=== PATIENT | male | born 1960 | race Caucasian/White ===

== ENCOUNTER 2023-05-01 07:44 | Day surgery (SDC) | payer BC, SELFPAY ==
[2023-05-01] MEDS: Lactated Ringers 1,000 ML 15 ML IV (08:16)
[2023-05-01 08:17] VITALS: BP 139/98; PULSE 88; RESP 16; TEMP 36.9; O2SAT 100; BMI 22.1
--- NOTE | 2023-05-01 08:27 | PCM.HP.STD ---
[facility] - General General Date of Admission: 05/01/23 Date of Service: 05/01/23 Chief Complaint: Screening colonoscopy HPI Narrative DANYA BRADLEY, is a 62 M who presents today for screening. He has past medical history of BPH, gout, hypercholesterolemia who presents for screening colonoscopy. He had a colonoscopy approximately 10 years ago. That was normal. He does not have any problems with his bowels. He denies any chest pain or shortness of breath. Overall is in very good health. [facility] Medical History (Updated 04/26/23 @ 10:31 by Miya Quezada) Alcohol use Benign prostatic hyperplasia with lower urinary tract symptoms Cancer Gout High cholesterol History of edema History of steroid therapy Hypercholesteremia Kidney stone Non-smoker Wears glasses Home Medications finasteride 5 mg tablet 5 mg PO DAILY 02/16/23 [History Last Taken Unknown] rosuvastatin 10 mg tablet 10 mg PO DAILY 02/16/23 [History Last Taken Unknown] tamsulosin 0.4 mg capsule 0.4 mg PO DAILY 02/16/23 [History Last Taken Unknown] allopurinol 100 mg tablet 100 mg PO DAILY 04/26/23 [History Last Taken Unknown] Allergy/AdvReac Type Severity Reaction Status Date / Time Penicillins Allergy PT UNSURE Verified 05/01/23 08:15 OF REACTION Family History (Updated 02/16/23 @ 10:46 by La Shea) Brother Colon polyps Father Lung cancer Mother Breast cancer Surgical History (Updated 02/16/23 @ 10:44 by La Shea) Hx of appendectomy Hx of colonoscopy Hx of hernia repair Hx of lithotripsy Social History (Updated 02/16/23 @ 10:48 by La Shea) household members: spouse current occupational status: retired Smoking Status: Never smoker alcohol intake: current substance use type: does not use caffeine: Yes Type: coffee ROS Review of Systems ROS Unobtainable: other Constitutional Constitutional: Denies fatigue, fever(s), poor appetite, weight gain or weight loss ENT HEENT: Denies mouth lesions Cardiovascular Cardiovascular: Denies abdominal bloating, abdominal edema or abdominal pain Respiratory/Chest Respiratory/Chest: Denies change in mental status, change in phlegm color, chest congestion or chest tightness Gastrointestinal Gastrointestinal: Denies belching, bloating, change in bowel habits, change in stool character, chewing difficulty, coffee ground emesis, constipation, cramping, diarrhea, dyspepsia, dysphagia, early satiety, excessive flatus, fecal incontinence, heartburn, hematemesis, hematochezia, hemorrhoids, loose stools, melena, nausea, odynophagia, rectal bleeding, tenesmus, vomiting or weight changes Genitourinary Genitourinary: Denies abdominal discomfort, burning urination or itching Musculoskeletal Musculoskeletal: Reports as per HPI; Denies muscle weakness or myalgias Integumentary Integumentary: Denies jaundice Neurologic Neurologic: Denies lack of coordination or weakness Psychiatric Psychiatric: Denies confusion, depression, memory loss, mood swings, paranoia or suicidal ideation Endocrine Endocrinology: Denies systems reviewed and no addt'l complaints, except as documented Hematologic/Lymphatic Hematologic/Lymphatic: Denies anemia, easy bleeding, easy bruising or lymphadenopathy Allergic/Immunologic Allergic/Immunologic: Denies systems reviewed and no addt'l complaints, except as documented Vital Signs Vital Signs Vital Signs: 05/01/23 08:17 05/01/23 08:17 Temperature 98.4 F Temperature Source Temporal Pulse Rate 88 Respiratory Rate 16 Respiratory Pattern Normal Blood Pressure 139/98 H Blood Pressure Mean 111 Blood Pressure Source Monitor Blood Pressure Position Sitting Blood Pressure Location Left Arm Pulse Ox 100 Oxygen Delivery Method Room Air Weight Weight: 154 lb 5.177 oz Body Mass Index (BMI) 22.1 Physical Exam Const alert General Appearance: cooperative Orientation / Consciousness: oriented to person HEENT hearing grossly normal bilaterally Head and Scalp: normal to inspection Face and Sinus: face symmetric Nose: external nose normal Mouth: oral and palatal mucosa normal Eyes conjunctivae normal General Eye: normal appearance of both eyes Neck full ROM General: normal visual inspection Lymph Lymphatic: no lymphadenopathy noted Chest inspection of chest normal and palpation of chest normal Chest: symmetrical chest wall rise Resp normal respiratory effort Effort and Inspection: able to speak in complete sentences Cardio regular rate GI non-distended Percussion: normal to percussion Rectal Exam: deferred Neuro Speech: speech normal Gait (Neuro): normal gait Assessment & Plan Assessment/Plan (1) Encounter for screening for malignant neoplasm of colon: PLAN: He was explained alternatives, risk, benefits include not withstanding bleeding, infection, sepsis, perforation, need for emergent surgery . He will have an ASA of 3.
--- NOTE | 2023-05-01 08:45 | COLBX_PTH ---
PATIENT: DANYA BRADLEY LOC: EN U#:[id number] AGE/SX: 62/M ROOM: RE05/01/[address]: Dr. Michele Worthington DO : 1960 BED: DIS: 05/01/2023 SPEC #: [id number] RECD: 05/01/23 11:11 STATUS: ARVIN LAURA #: [id number] JENN: 05/01/23 08:[address]: Michele Worthington DEPT: SURGICAL PATHOLOGY RECD BY: Liban Jovel ENTERED: 05/01/23 11:50 SP TYPE: COLON BX OTHR DR: Dr. Bebe Zhu MD Tissues: Sigmoid colon biopsy Procedures: Surgery Specimen Level IV HEADER OPERATION: Colonoscopy and polypectomy - open access PRE-OP DIAGNOSIS: Screening TISSUE SUBMITTED: Sigmoid polyp MICROSCOPIC DIAGNOSIS Sigmoid colon polyp, biopsy: Tubular adenoma. AM:kota 05/02/2023 MICROSCOPIC DESCRIPTION Slides are reviewed. GROSS DESCRIPTION Received in fixative is one container labeled with the patient's name and designated sigmoid polyp. The specimen consists of one irregular fragment of light pires soft tissue that measures 0.8 x 0.2 x 0.1 cm. The specimen is totally submitted in one cassette. / SJ:kota 05/01/2023 TC:5 CPT: 93075
[2023-05-01 09:02] VITALS: BP 104/64; BP 139/98; PULSE 70; RESP 18; TEMP 37.6; O2SAT 100
[2023-05-01 09:04] VITALS: BP 139/98; BP 98/65; PULSE 66; RESP 12; O2SAT 100
--- NOTE | 2023-05-01 09:08 | OP.COLON_ITS ---
Patient Name: Gerardo Arreola Procedure Date: 05/01/2023 8:21 AM Date of : 1960 Age: 62 Procedure: Colonoscopy Indications: Screening for colorectal malignant neoplasm Providers: Michele Worthington DO Medicines: Monitored Anesthesia Care Patient Profile: This is a 62 year old male. Refer to note in patient chart for documentation of history and physical. Last Colonoscopy: more than 10 years ago. Complications: No immediate complications. Procedure: Pre-Anesthesia Assessment: - Prior to the procedure, a History and Physical was performed, and patient medications and allergies were reviewed. The risks and benefits of the procedure and the sedation options and risks were discussed with the patient. All questions were answered and informed consent was obtained. Patient identification and proposed procedure were verified by the physician in the pre-procedure area. Mental Status Examination: alert and oriented. Airway Examination: normal oropharyngeal airway and neck mobility. Respiratory Examination: clear to auscultation. CV Examination: normal. Prophylactic Antibiotics: The patient does not require prophylactic antibiotics. Prior Anticoagulants: The patient has taken no anticoagulant or antiplatelet agents. After reviewing the risks and benefits, the patient was deemed in satisfactory condition to undergo the procedure. The anesthesia plan was to use monitored anesthesia care (MAC). Immediately prior to administration of medications, the patient was re-assessed for adequacy to receive sedatives. The heart rate, respiratory rate, oxygen saturations, blood pressure, adequacy of pulmonary ventilation, and response to care were monitored throughout the procedure. The physical status of the patient was re-assessed after the procedure. After I obtained informed consent, the scope was passed under direct vision. Throughout the procedure, the patient's blood pressure, pulse, and oxygen saturations were monitored continuously. The Colonoscope was introduced through the anus and advanced to the cecum, identified by appendiceal orifice and ileocecal valve. The colonoscopy was performed without difficulty. The patient tolerated the procedure well. The quality of the bowel preparation was good. The ileocecal valve, appendiceal orifice, and rectum were photographed. Scope In: 8:42:15 AM Scope Withdrawal Time 0 hours 10 minutes 29 seconds Scope Out: 8:57:15 AM Total Procedure Duration Time 0 hours 15 minutes 0 seconds Findings: The perianal and digital rectal examinations were normal. A few small-mouthed diverticula were found in the sigmoid colon. A 4 mm polyp was found in the sigmoid colon. The polyp was sessile. The polyp was removed with a hot snare. Resection and retrieval were complete. Verification of patient identification for the specimen was done. Estimated blood loss was minimal. Impression: - Diverticulosis in the sigmoid colon. - One 4 mm polyp in the sigmoid colon, removed with a hot snare. Resected and retrieved. Recommendation: - Repeat colonoscopy in 5 years for surveillance. - Continue present medications. Procedure Code(s): --- Professional --- 98974, Colonoscopy, flexible; with removal of tumor(s), polyp(s), or other lesion(s) by snare technique CPT copyright 2021 [employer]. All rights reserved. The codes documented in this report are preliminary and upon surgical coder review may be revised to meet current compliance requirements. Michele Worthington DO 05/01/2023 9:07:40 AM This report has been signed electronically. Number of Addenda: 0 Note Initiated On: 05/01/2023 8:21 AM
--- NOTE | 2023-05-01 09:08 | OP.CCLET_ITS ---
05/01/2023 Bebe Zhu Md Re : Colonoscopy procedure for Gerardo Arreola Dear Dr. Zhu This procedure was performed on Monday, May 01, 2023. My impressions and recommendations are as follows: Impressions : - Diverticulosis in the sigmoid colon. - One 4 mm polyp in the sigmoid colon, removed with a hot snare. Resected and retrieved. Recommendations : - Repeat colonoscopy in 5 years for surveillance. - Continue present medications. My findings are described in the full procedure note, which is enclosed. If I can be of further assistance, please feel free to contact me at . Sincerely, Michele Worthington, DO 05/01/2023 9:07:40 AM This report has been signed electronically.
[2023-05-01 09:11] VITALS: BP 115/72; BP 139/98; PULSE 62; RESP 18; O2SAT 100
[2023-05-01 09:13] VITALS: BP 122/75; BP 139/98; PULSE 67; RESP 12; TEMP 36.8; O2SAT 100
[2023-05-01 09:24] VITALS: BP 139/98
== END 2023-05-01 09:32 | disposition home or self-care (01) ==
LOC: EN 07:51 → AC 07:51
PROVIDERS: PCP Family Medicine; Referring Provider Family Medicine; Visit Provider Internal Medicine Gastroenterology
PROC: 0DJD8ZZ Inspection of Lower Intestinal Tract, Via Natural or Artificial Opening Endoscopic (ICD-10-PCS; CPT 45378; principal; 2023-05-01 08:40)
DX: Z12.11 Encounter for screening for malignant neoplasm of colon (principal); D12.5 Benign neoplasm of sigmoid colon; K57.30 Diverticulosis of large intestine without perforation or abscess without bleeding; E78.00 Pure hypercholesterolemia, unspecified; N40.0 Benign prostatic hyperplasia without lower urinary tract symptoms; Z79.899 Other long term (current) drug therapy; Z87.442 Personal history of urinary calculi
CPT/HCPCS: 45385; 88305; J7120; J2405